=== PATIENT | male | born 1965 | race African-American/Black ===

== ENCOUNTER 2023-08-09 19:22 | Emergency (ER) | payer OTHER ==
[~2023-08-09] VITALS: Ht 172.7 cm; Wt 66.7 kg
[2023-08-09 21:17] LABS: BASOPHILS # (AUTO) 0.2 K/uL (0.0-0.2); BASOPHILS % (AUTO) 2.1 % (0.0-2.0); EOSINOPHILS # (AUTO) 0.1 K/uL (0.0-0.7); EOSINOPHILS % (AUTO) 1.2 % (0.0-6.0); HEMATOCRIT 44 % (39-51); HEMOGLOBIN 14.7 g/dL (13.5-17.5); LYMPHOCYTES % (AUTO) 25.7 % (20.0-44.0); MEAN CORPUSCULAR HEMOGLOBIN 28 PG (26.0-33.0); MEAN CORPUSCULAR HGB CONC 33 g/dl (31.0-36.0); MEAN CORPUSCULAR VOLUME 85 fL (80-96); MONOCYTES # (AUTO) 0.5 K/uL (0.1-1.30); NEUTROPHILS # (AUTO) 5.1 K/uL (1.8-8.9); PLATELET COUNT (AUTO) 223 K/uL (150-450); RED BLOOD CELL COUNT(AUTO) 5.22 MIL/uL (4.5-6.0); RED CELL DISTRIBUTION WIDTH 14.3 % (11.5-15.0); WHITE BLOOD COUNT (AUTO) 7.8 K/uL (4.3-11.0)
[2023-08-09 21:50] LABS: CALCIUM, SERUM 8.5 mg/dL (8.5-10.1); CARBON DIOXIDE 29 mmol/L (21-32); CHLORIDE 103 mmol/L (98-107); CREATININE 1.2 mg/dL (0.6-1.3); GLUCOSE 79 mg/dL (74-106); POTASSIUM 3.2 mmol/L (3.5-5.1); SODIUM SERUM 137 mmol/L (136-145); UREA NITROGEN, BLOOD 21 mg/dL (7-18)
[2023-08-09] MEDS ORDERED: AMLODIPINE BESYLATE 10 MG TABLET ONE (21:54)
[2023-08-09] MEDS: AMLODIPINE BESYLATE 5 MG TABLET PO ONE (21:57)
[2023-08-09] MEDS ORDERED: AMLO-213 PO (22:19)
[2023-08-09] MEDS ORDERED: hydrALAZINE HCL IV 20 MG VIAL ONE (22:31)
[2023-08-09] MEDS: hydrALAZINE HCL IV 20 MG VIAL IV ONE (22:40)
[2023-08-09 23:27] VITALS: BP 172/107; TEMP 98.5; O2SAT 99
== END 2023-08-09 23:48 | disposition home or self-care (01) ==
LOC: ER 19:28
DX: I10 Essential (primary) hypertension (principal); Z55.6 Problems related to health literacy
CPT/HCPCS: 99285; 96374; 71045; 93005; 85025; 80048; 36415; 84484; 83880; J0360